=== PATIENT | female | born 1930 | race Caucasian/White ===

== ENCOUNTER 2016-10-05 16:58 | Inpatient (IN) | payer OTHER ==
[~2016-10-05] VITALS: Ht 142.2 cm; Wt 48.9 kg
[~2016-10-05 16:58] MED LIST: ADVIL200 MG PO; AMLODIPINE BES2.5 MG PO; ASPIRIN325 MG PO; CRESTOR20 MG PO; ERGOCALCIF50000 UNIT PO; FERROUS SULFAT325 MG PO; KEFLEX500 MG PO; LEVAQUIN750 MG PO; LISINOPRIL2.5 MG PO; LOVENOX40 MG/0.4 SC; MULTIVITAMIN1 EAC2 PO; OXYCODONE HCL5 MG PO; RANITIDINE HCL150 MG PO; TRAMADOL HCL50 MG PO; TRIAMCINOLONE A15 GM TP; ULTRAM50 MG PO; VITAMIN D31000 UNIT PO; simvastatin PO
[2016-10-05 17:46] LABS: HEMATOCRIT 39.9 % (36.0-46.0); MCH 31.1 PG (29.0-34.0); MCHC 32.8 G/DL (30.0-36.0); MCV 94.8 FL (83-99); MEAN PLAT.VOLUME 9.9 uM^3 (9.5-12.4); PLATELET COUNT 387 K/uL (156-360); RBC DIS.WIDTH-CV 13.2 % (11.8-14.6); RBC DIS.WIDTH-SD 46.1 % (39-53); RED BLOOD COUNT 4.21 M/uL (3.80-5.20); WHITE BLOOD COUNT 20.9 K/uL (4.1-10.2)
[2016-10-05 17:56] LABS: CHLORIDE 101 mEq/L (99-109); POTASSIUM 3.9 mEq/L (3.7-5.4)
[2016-10-05 17:57] LABS: SODIUM 135 mEq/L (136-147)
[2016-10-05 17:59] LABS: GLUCOSE 98 mg/dL (70-99)
[2016-10-05 18:00] LABS: ANION GAP 10 MEQ/L (2-14)
[2016-10-05 18:01] LABS: TOTAL BILIRUBIN 0.7 mg/dL (0.0-1.0)
[2016-10-05 18:02] LABS: ALKALINE PHOSPHATASE 125 IU/L (3-129); GFR ESTIMATE (CALCULATED) 45 mL/min/
[2016-10-05 18:04] LABS: UREA NITROGEN (BUN) 15 mg/dL (9-23)
[2016-10-05 18:12] LABS: TROP-I INTERPRETATION NEGATIVE; TROPONIN-I < 0.01 ng/mL (0.0-0.30)
[2016-10-05] MEDS ORDERED: ZOCOR40 MG PO (18:24)
[2016-10-05] MEDS ORDERED: ZYRTEC10 M3 PO (18:26)
[2016-10-05 18:29] LABS: ABS NEUTROPHIL COUNT 15.6; ATYPICAL LYMPHOCYTE 9.6 %; BAND NEUTROPHILS 1.7 % (0-8.0); BASOPHILS 0.9 %; EOSINOPHIL ABS CT 0; INSTRUMENT ABS NEUTROPHIL CT 14.3 K/uL; LYMPHOCYTES 7.8 % (15.0-45.0)
[2016-10-05 18:41] LABS: ADD MIUA? YES; BILIRUBIN NEGATIVE; BLOOD SMALL; COLOR YELLOW ((YELLOW)); GLUCOSE (STRIP) NEGATIVE; KETONES NEGATIVE; LEUKOCYTES MODERATE; NITRITE NEGATIVE; PROTEIN (STRIP) NEGATIVE; SPECIFIC GRAVITY 1.006 (1.000-1.030); UROBILINOGEN 0.2 MG/DL (0.2-1.0)
[2016-10-05 19:00] VITALS: BP 131/69
[2016-10-05 19:30] LABS: BACTERIA 2+ /HPF; EPITHELIAL CELLS RARE /HPF; MUCUS NONE SEEN /LPF; RED BLOOD CELLS 0-5 /HPF (0-5); UCUL ADDED? YES
[2016-10-05 20:05] VITALS: BP 118/70
[2016-10-05 22:46] VITALS: BP 131/76
[2016-10-05 23:41] VITALS: BP 122/55
[2016-10-06 03:20] VITALS: BP 119/52
[2016-10-06 06:08] LABS: HEMATOCRIT 35.2 % (36.0-46.0); MCH 30.6 PG (29.0-34.0); MCHC 32.4 G/DL (30.0-36.0); MCV 94.6 FL (83-99); MEAN PLAT.VOLUME 10.2 uM^3 (9.5-12.4); PLATELET COUNT 364 K/uL (156-360); RBC DIS.WIDTH-CV 13.2 % (11.8-14.6); RBC DIS.WIDTH-SD 46.2 % (39-53); RED BLOOD COUNT 3.72 M/uL (3.80-5.20); WHITE BLOOD COUNT 19.8 K/uL (4.1-10.2)
[2016-10-06 06:30] LABS: ANION GAP 7 MEQ/L (2-14); CHLORIDE 102 MEQ/L (99-109); GFR ESTIMATE (CALCULATED) 50 mL/min/; GLUCOSE 99 mg/dL (70-99); SAMPLE HEMOLYSIS CHECK 0; SAMPLE ICTERIC CHECK 0; SAMPLE LIPEMIA CHECK 0; SODIUM 135 MEQ/L (136-147); UREA NITROGEN (BUN) 14 mg/dL (9-23)
[2016-10-06 07:18] VITALS: BP 134/62
[2016-10-06 19:29] VITALS: BP 139/68
[2016-10-06 23:44] VITALS: BP 102/53
[2016-10-07 03:31] VITALS: BP 101/50
[2016-10-07 07:16] VITALS: BP 115/58
[2016-10-07 09:34] LABS: BASOPHIL COUNT 0.1 K/uL (0-0.1); EOSINOPHIL (%) 2.1 % (0-5); EOSINOPHIL COUNT 0.2 K/uL (0-0.3); HEMATOCRIT 35.3 % (36.0-46.0); IMMATURE GRANULOCYTE (%) 0.3 % (0.0-0.7); INSTRUMENT ABS NEUTROPHIL CT 6.8 K/uL; LYMPHOCYTE COUNT 2.4 K/uL (1.0-2.8); MCH 30.7 PG (29.0-34.0); MCHC 31.4 G/DL (30.0-36.0); MCV 97.5 FL (83-99); MEAN PLAT.VOLUME 10.3 uM^3 (9.5-12.4); MONOCYTE (%) 11.8 % (3-12); MONOCYTE COUNT 1.3 K/uL (0-0.8); NEUTROPHIL COUNT 6.8 K/uL (1.8-6.4); PLATELET COUNT 401 K/uL (156-360); RBC DIS.WIDTH-CV 13.5 % (11.8-14.6); RBC DIS.WIDTH-SD 48.7 % (39-53); RED BLOOD COUNT 3.62 M/uL (3.80-5.20)
[2016-10-07 09:39] LABS: WHITE BLOOD COUNT 10.7 K/uL (4.1-10.2)
[2016-10-07 09:55] LABS: ANION GAP 7 MEQ/L (2-14); CHLORIDE 103 MEQ/L (99-109); GFR ESTIMATE (CALCULATED) 56 mL/min/; GLUCOSE 106 mg/dL (70-99); POTASSIUM 4.3 MEQ/L (3.7-5.4); SAMPLE HEMOLYSIS CHECK 0; SAMPLE ICTERIC CHECK 0; SAMPLE LIPEMIA CHECK 0; SODIUM 136 MEQ/L (136-147); UREA NITROGEN (BUN) 10 mg/dL (9-23)
[2016-10-07 10:00] VITALS: BP 121/60
[2016-10-07 15:00] VITALS: BP 120/64
[2016-10-07 23:02] VITALS: BP 101/57
[2016-10-08 07:15] LABS: HEMATOCRIT 34.9 % (36.0-46.0); MCH 30.5 PG (29.0-34.0); MCHC 31.8 G/DL (30.0-36.0); MCV 95.9 FL (83-99); MEAN PLAT.VOLUME 10.2 uM^3 (9.5-12.4); PLATELET COUNT 435 K/uL (156-360); RBC DIS.WIDTH-CV 13.2 % (11.8-14.6); RBC DIS.WIDTH-SD 47.5 % (39-53); RED BLOOD COUNT 3.64 M/uL (3.80-5.20); WHITE BLOOD COUNT 12.1 K/uL (4.1-10.2)
[2016-10-08 08:01] VITALS: BP 120/57
[2016-10-08 08:09] LABS: BASOPHIL COUNT 0.1 K/uL (0-0.1); EOSINOPHIL (%) 3.1 % (0-5); EOSINOPHIL COUNT 0.4 K/uL (0-0.3); IMMATURE GRANULOCYTE (%) 0.5 % (0.0-0.7); IMMATURE GRANULOCYTE COUNT 0.1 K/uL; INSTRUMENT ABS NEUTROPHIL CT 6.2 K/uL; LYMPHOCYTE COUNT 3.7 K/uL (1.0-2.8); MONOCYTE (%) 13.3 % (3-12); MONOCYTE COUNT 1.6 K/uL (0-0.8); NEUTROPHIL (%) 51.2 % (45-76); NEUTROPHIL COUNT 6.2 K/uL (1.8-6.4)
[2016-10-08 15:15] VITALS: BP 115/53
[2016-10-08 23:46] VITALS: BP 103/54
[2016-10-09 06:41] LABS: HEMATOCRIT 35.6 % (36.0-46.0); MCH 30.3 PG (29.0-34.0); MCHC 31.7 G/DL (30.0-36.0); MCV 95.4 FL (83-99); RBC DIS.WIDTH-CV 13.4 % (11.8-14.6); RBC DIS.WIDTH-SD 47.6 % (39-53); RED BLOOD COUNT 3.73 M/uL (3.80-5.20); WHITE BLOOD COUNT 10.3 K/uL (4.1-10.2)
[2016-10-09 07:08] LABS: ALKALINE PHOSPHATASE 202 IU/L (3-129); ANION GAP 6 MEQ/L (2-14); CHLORIDE 107 MEQ/L (99-109); GFR ESTIMATE (CALCULATED) 41 mL/min/; GLUCOSE 89 mg/dL (70-99); POTASSIUM 4.6 MEQ/L (3.7-5.4); SAMPLE HEMOLYSIS CHECK 0; SAMPLE ICTERIC CHECK 0; SAMPLE LIPEMIA CHECK 0; SODIUM 141 MEQ/L (136-147); TOTAL BILIRUBIN 0.3 MG/DL (0.0-1.0); UREA NITROGEN (BUN) 18 mg/dL (9-23)
[2016-10-09 07:24] LABS: BASOPHIL COUNT 0.1 K/uL (0-0.1); EOSINOPHIL (%) 4.7 % (0-5); EOSINOPHIL COUNT 0.5 K/uL (0-0.3); IMMATURE GRANULOCYTE (%) 0.7 % (0.0-0.7); IMMATURE GRANULOCYTE COUNT 0.1 K/uL; INSTRUMENT ABS NEUTROPHIL CT 5.4 K/uL; LYMPHOCYTE COUNT 2.9 K/uL (1.0-2.8); MONOCYTE (%) 12.8 % (3-12); MONOCYTE COUNT 1.3 K/uL (0-0.8); NEUTROPHIL (%) 52.6 % (45-76); NEUTROPHIL COUNT 5.4 K/uL (1.8-6.4); PLATELET CLUMPS PRESENT - PLATELET COUNTS APPEARS DECREASED; STOMATOCYTES 1+; TARGET CELLS 1+
[2016-10-09 08:20] VITALS: BP 112/59
[2016-10-09] MEDS ORDERED: LEVAQUIN750 MG PO (12:55)
== END 2016-10-09 14:26 | disposition home or self-care (01) | DRG 689 ==
LOC: EME 16:58 → 5EAST 18:13 → EDOF 18:13 → 5EAST 19:39
PROVIDERS: Emergency Medicine; Family Medicine
DX: N39.0 Urinary tract infection, site not specified (principal); J18.9 Pneumonia, unspecified organism; L97.529 Non-pressure chronic ulcer of other part of left foot with unspecified severity; I83.20 Varicose veins of unspecified lower extremity with both ulcer and inflammation; D72.829 Elevated white blood cell count, unspecified; L97.519 Non-pressure chronic ulcer of other part of right foot with unspecified severity; R53.1 Weakness; M19.90 Unspecified osteoarthritis, unspecified site; D64.9 Anemia, unspecified; E78.5 Hyperlipidemia, unspecified; E11.9 Type 2 diabetes mellitus without complications; I10 Essential (primary) hypertension; Z86.73 Personal history of transient ischemic attack (TIA), and cerebral infarction without residual deficits; R50.9 Fever, unspecified; R41.82 Altered mental status, unspecified; D47.3 Essential (hemorrhagic) thrombocythemia
CPT/HCPCS: 71010; 80048; 80053; 81003; 83605; 84484; 85025; 85027; 87040; 87077; 87086; 87186; 93005; 97530 GO; 99281; 99284; J1650; J1956

== ENCOUNTER 2017-04-17 16:51 | Observation (INO) | payer OTHER ==
[~2017-04-17] VITALS: Ht 147.3 cm; Wt 39.9 kg
[~2017-04-17 16:51] MED LIST changes: +LO-DOSE ASPIRIN81 M1 PO; +ZOCOR40 MG PO; +ZYRTEC10 M3 PO
[2017-04-17 17:50] LABS: HEMATOCRIT 34.5 % (36.0-46.0); MCH 29.6 PG (29.0-34.0); MCHC 33.6 G/DL (30.0-36.0); MEAN PLAT.VOLUME 10.2 uM^3 (9.5-12.4); PLATELET COUNT 345 K/uL (156-360); RBC DIS.WIDTH-CV 14.4 % (11.8-14.6); RBC DIS.WIDTH-SD 46.3 % (39-53); RED BLOOD COUNT 3.92 M/uL (3.80-5.20)
[2017-04-17 18:04] LABS: CHLORIDE 96 mEq/L (99-109); POTASSIUM 4.5 mEq/L (3.7-5.4); SODIUM 127 mEq/L (136-147)
[2017-04-17 18:06] LABS: GLUCOSE 98 mg/dL (70-99)
[2017-04-17 18:07] LABS: ANION GAP 12 MEQ/L (2-14)
[2017-04-17 18:08] LABS: TOTAL BILIRUBIN 0.3 mg/dL (0.0-1.0)
[2017-04-17 18:09] LABS: ALKALINE PHOSPHATASE 68 IU/L (3-129)
[2017-04-17 18:10] LABS: TROP-I INTERPRETATION NEGATIVE; TROPONIN-I 0.01 ng/mL (0.0-0.30)
[2017-04-17 18:10] LABS: GFR ESTIMATE (CALCULATED) 25 mL/min/
[2017-04-17 18:11] LABS: UREA NITROGEN (BUN) 19 mg/dL (9-23)
[2017-04-17 19:12] LABS: ADD MIUA? YES; BILIRUBIN NEGATIVE; BLOOD NEGATIVE; COLOR STRAW ((YELLOW)); GLUCOSE (STRIP) NEGATIVE; KETONES NEGATIVE; LEUKOCYTES SMALL; NITRITE NEGATIVE; PROTEIN (STRIP) NEGATIVE; SPECIFIC GRAVITY 1.005 (1.000-1.030); UROBILINOGEN 0.2 MG/DL (0.2-1.0)
[2017-04-17 19:21] LABS: BACTERIA NONE SEEN /HPF; EPITHELIAL CELLS RARE /HPF; MUCUS NONE SEEN /LPF; RED BLOOD CELLS 0-5 /HPF (0-5); UCUL ADDED? NO; WHITE BLOOD CELLS 0-5 /HPF (0-5)
[2017-04-17] MEDS ORDERED: BACTRIM,SEPT1 TABLET PO (20:31)
[2017-04-17] MEDS ORDERED: REQUIP1 MG PO (20:31)
[2017-04-17] MEDS ORDERED: ANTIVERT25 MG PO (20:32)
[2017-04-17 22:30] VITALS: BP 142/65
[2017-04-18 03:32] VITALS: BP 112/56
[2017-04-18 06:17] LABS: ANION GAP 8 MEQ/L (2-14); CHLORIDE 102 MEQ/L (99-109); GFR ESTIMATE (CALCULATED) 30 mL/min/; GLUCOSE 102 mg/dL (70-99); POTASSIUM 4.3 MEQ/L (3.7-5.4); SAMPLE HEMOLYSIS CHECK 0; SAMPLE ICTERIC CHECK 0; SAMPLE LIPEMIA CHECK 0; SODIUM 133 MEQ/L (136-147); UREA NITROGEN (BUN) 14 mg/dL (9-23)
[2017-04-18 07:21] VITALS: BP 122/66
[2017-04-18 12:10] VITALS: BP 131/74
[2017-04-18 15:54] VITALS: BP 136/61
[2017-04-18 19:45] VITALS: BP 126/55
[2017-04-18 23:36] VITALS: BP 133/60
[2017-04-19 03:09] VITALS: BP 180/79
[2017-04-19 06:00] LABS: ANION GAP 9 MEQ/L (2-14); CHLORIDE 106 MEQ/L (99-109); GFR ESTIMATE (CALCULATED) 38 mL/min/; GLUCOSE 135 mg/dL (70-99); SAMPLE HEMOLYSIS CHECK 0; SAMPLE ICTERIC CHECK 0; SAMPLE LIPEMIA CHECK 0; SODIUM 136 MEQ/L (136-147); UREA NITROGEN (BUN) 13 mg/dL (9-23)
[2017-04-19 09:15] VITALS: BP 159/70
[2017-04-19 11:42] VITALS: BP 149/75
[2017-04-19 12:34] LABS: ADD MIUA? YES; BILIRUBIN NEGATIVE; BLOOD SMALL; COLOR COLORLESS ((YELLOW)); GLUCOSE (STRIP) 50; KETONES NEGATIVE; LEUKOCYTES NEGATIVE; NITRITE NEGATIVE; PROTEIN (STRIP) NEGATIVE; SPECIFIC GRAVITY 1.004 (1.000-1.030); UROBILINOGEN 0.2 MG/DL (0.2-1.0)
[2017-04-19 12:39] LABS: BACTERIA NONE SEEN /HPF; EPITHELIAL CELLS NONE SEEN /HPF; MUCUS NONE SEEN /LPF; RED BLOOD CELLS 0-5 /HPF (0-5); UCUL ADDED? NO; WHITE BLOOD CELLS NONE SEEN /HPF (0-5)
[2017-04-19 15:22] VITALS: BP 179/79
[2017-04-19 19:50] VITALS: BP 146/71
[2017-04-19 23:27] VITALS: BP 151/70
[2017-04-20 03:57] VITALS: BP 122/64
[2017-04-20 08:00] VITALS: BP 131/68
[2017-04-20 09:41] LABS: BASOPHIL COUNT 0.1 K/uL (0-0.1); EOSINOPHIL (%) 2.1 % (0-5); EOSINOPHIL COUNT 0.2 K/uL (0-0.3); HEMATOCRIT 36.8 % (36.0-46.0); IMMATURE GRANULOCYTE (%) 0.1 % (0.0-0.7); INSTRUMENT ABS NEUTROPHIL CT 3.5 K/uL; LYMPHOCYTE COUNT 2.8 K/uL (1.0-2.8); MCH 28.9 PG (29.0-34.0); MCHC 32.1 G/DL (30.0-36.0); MEAN PLAT.VOLUME 10.5 uM^3 (9.5-12.4); MONOCYTE (%) 8.3 % (3-12); MONOCYTE COUNT 0.6 K/uL (0-0.8); NEUTROPHIL (%) 48.7 % (45-76); NEUTROPHIL COUNT 3.5 K/uL (1.8-6.4); PLATELET COUNT 369 K/uL (156-360); RBC DIS.WIDTH-SD 49.1 % (39-53); RED BLOOD COUNT 4.09 M/uL (3.80-5.20); WHITE BLOOD COUNT 7.2 K/uL (4.1-10.2)
[2017-04-20 09:53] LABS: ANION GAP 7 MEQ/L (2-14); CHLORIDE 109 MEQ/L (99-109); GFR ESTIMATE (CALCULATED) 56 mL/min/; GLUCOSE 118 mg/dL (70-99); POTASSIUM 4.2 MEQ/L (3.7-5.4); SAMPLE HEMOLYSIS CHECK 0; SAMPLE ICTERIC CHECK 0; SAMPLE LIPEMIA CHECK 0; SODIUM 139 MEQ/L (136-147); UREA NITROGEN (BUN) 8 mg/dL (9-23)
[2017-04-20] MEDS ORDERED: TRAMADOL HCL50 MG PO (12:05)
[2017-04-20 14:47] VITALS: BP 162/71
== END 2017-04-20 14:48 ==
LOC: EME 16:51 → 5WEST 20:00 → EDOF 20:00 → ENRESERV 20:34 → 5WEST 22:12
PROVIDERS: Family Medicine; Nurse Practitioner Family
DX: N28.9 Disorder of kidney and ureter, unspecified (principal); N17.9 Acute kidney failure, unspecified; R42 Dizziness and giddiness; R53.1 Weakness; R26.9 Unspecified abnormalities of gait and mobility; R41.0 Disorientation, unspecified; I10 Essential (primary) hypertension; E11.9 Type 2 diabetes mellitus without complications; E78.5 Hyperlipidemia, unspecified; M19.90 Unspecified osteoarthritis, unspecified site; Z86.73 Personal history of transient ischemic attack (TIA), and cerebral infarction without residual deficits; E87.1 Hypo-osmolality and hyponatremia; H54.7 Unspecified visual loss; H91.90 Unspecified hearing loss, unspecified ear; Z87.440 Personal history of urinary (tract) infections; R29.6 Repeated falls; Z90.81 Acquired absence of spleen; Z90.49 Acquired absence of other specified parts of digestive tract
CPT/HCPCS: 70450; 80048; 80053; 81003; 83605; 84484; 85025; 85027; 93005; 99281; 99285; G0378; G8978 GP CK; G8979 CJ; G8980 GP CK; G8987 CK; G8988 GO CJ; G8989 GO CK; J1644; J7030; J7042

== ENCOUNTER 2017-08-25 16:45 | Emergency (ER) | payer OTHER ==
[~2017-08-25] VITALS: Ht 144.8 cm; Wt 47.0 kg
[~2017-08-25 16:45] MED LIST changes: +ANTIVERT25 MG PO; +BACTRIM,SEPT1 TABLET PO; +REQUIP1 MG PO
[2017-08-25] MEDS ORDERED: ULTRAM50 MG PO (19:01)
[2017-08-25 19:49] VITALS: BP 131/70
== END 2017-08-25 19:50 | disposition home or self-care (01) ==
LOC: EME 16:45
DX: S70.01XA Contusion of right hip, initial encounter (principal); W19.XXXA Unspecified fall, initial encounter; Z96.641 Presence of right artificial hip joint; E11.9 Type 2 diabetes mellitus without complications; I10 Essential (primary) hypertension; K21.9 Gastro-esophageal reflux disease without esophagitis; Z87.891 Personal history of nicotine dependence; Z86.73 Personal history of transient ischemic attack (TIA), and cerebral infarction without residual deficits; Z90.49 Acquired absence of other specified parts of digestive tract; Z79.82 Long term (current) use of aspirin
CPT/HCPCS: 73700; 99281; 99283